=== PATIENT | female | born 1985 | race Caucasian/White ===

== ENCOUNTER 2016-04-09 14:44 | Inpatient (IN) | payer OTHER ==
[2016-04-09] VITALS (24 sets, daily range): BP systolic 88–134; BP diastolic 50–81
[~2016-04-09] VITALS: Ht 157.5 cm; Wt 75.0 kg
[~2016-04-09 14:44] MED LIST: ACET50TA PO
[2016-04-09] MEDS ORDERED: PENICILLIN G POTASSIUM IV 5 MU in D5W MINI-BAG PLUS 100 ML IV STA (15:01)
[2016-04-09 15:37] LABS: MEAN CORPUSCULAR HEMOGLOBIN 30.5 pg (27.0-33.0); MEAN CORPUSCULAR HGB CONC 34.2 g/dl (32.0-36.5); MEAN CORPUSCULAR VOLUME 89.1 fl (80.0-96.0); RED CELL DISTRIBUTION WIDTH 13.3 % (11.5-14.5); WHITE BLOOD COUNT 9.9 K/mm3 (4.0-10.0)
--- NOTE | 2016-04-09 17:38 | IPNPDOC ---
Obstetrical Progress Note Date of Service The patient was seen on 04/09/16 at 17:05. Progress Note HISTORY AND PHYSICAL: SUBJECTIVE: Patient is a 31-year-old female at 39 weeks and 6 days gestation with an EDC of 04/10/2016 based on a first trimester ultrasound. She initiated her care at [facility] in her first trimester. Her care has been uncomplicated. She presents to labor and delivery via ambulation for an elective induction of labor due to a history of 2 precipitous deliveries. She reports occasional contractions, active movement, denies leaking of fluid, denies vaginal bleeding. ALLERGIES: Sulfa drugs CURRENT MEDICATIONS: vitamins OBSTETRICAL HISTORY: 2006: Induced AB; 2008 induced AB; October 2004: of a living female at 40 weeks 3 days gestation weighing 7 lbs. 15 oz. complicated by precipitous delivery and meconium; November 2009 of a living male at 40 weeks 3 days gestation weighing 8 lbs. 2 oz. complicated by precipitous delivery ; September 2013: 5 week SAB OBSTETRICAL LABS: AB+, antibody screen negative, Pap within normal limits, rubella immune, RPR nonreactive, urine culture negative, hepatitis B surface antigen negative HIV negative, chlamydia negative, gonorrhea negative, genetic screening negative, 1 hour glucose tolerance test 110, second trimester hemoglobin and hematocrit 11.6 and 33.7, GBS positive. PAST MEDICAL HISTORY: No pertinent medical history SURGICAL HISTORY: D&C, tonsillectomy, cholecystectomy FAMILY HISTORY: Noncontributory SOCIAL HISTORY: Single with father of the baby, patient is a former smoker. Denies alcohol or drug use. Reports that she does not exercise. No history of STDs. OBJECTIVE: See vital signs below. heart rate 135 bpm with accelerations, no decelerations, moderate variability. Contractions irregular. SVE: 3/50/ posterior, soft, no bloody show, intact membranes. Neuro: A and O 3 Respiratory: Lungs clear bilaterally Abdomen: Gravid, mild contractions with palpation Cardiovascular: Regular rate and regular rhythm. Extremities: Generalized edema present in bilateral legs, ankles, and feet. No pitting edema. ASSESSMENT: IUP at 39 weeks and 6 days gestation, elective induction of labor, category 1 tracing, history of precipitous deliveries PLAN: Admit to labor and delivery. Out of bed as tolerated, regular diet, saline lock, penicillin G ordered for positive GBS, in labs ordered. We'll start induction once patient has had a few hours of penicillin in her system due to precipitous deliveries. Consider starting IV Pitocin. Collaboration of patient done with Dr. Krause. VS, I&O, 24H, Aleyda VS, I&O, 24H, Aleyda Vital Signs Date Time Temp Pulse Resp B/P Pulse Ox O2 Delivery O2 Flow Rate FiO2 04/09/16 14:56 97.8 88 18 130/81 Laboratory Tests 2 04/09/16 15:10: Serology Scanned Report Hepatitis B Testing 04/09/16 15:19: Laboratory Tests 04/09/16 15:19 Red Blood Count 3.76 L, Mean Corpuscular Volume 89.1, Mean Corpuscular Hemoglobin 30.5, Mean Corpuscular Hemoglobin Concent 34.2, Red Cell Distribution Width 13.3 ALLA ROSE CNM Apr 09, 2016 17:21
[2016-04-09] MEDS ORDERED: LR 1,000 ML IV SCH (18:55)
[2016-04-09] MEDS ORDERED: OXYTOCIN DRIP 30 UNITS in APPROPRIATE DILUENT 1 EA IV SCH (19:00)
[2016-04-09] MEDS ORDERED: LACTATED RINGER'S 1000 ML IV ONE (19:00)
[2016-04-09] MEDS ORDERED: FENTANYL 2MCG/ML ROPIVACAINE 0.2% NACL 250 ML CADD As Ordered ONE (19:35)
[2016-04-09] MEDS: PENICILLIN G POTASSIUM IV 2.5 MU in D5W 100 ML IV SCH ×2 (19:46→23:51)
[2016-04-09] MEDS ORDERED: LACTATED RINGER'S 1000 ML IV PRN (20:30)
[2016-04-09] MEDS ORDERED: ePHEDrine SULFATE 25 MG/5 ML(5MG/ML) SYRINGE IV PRN (20:30)
[2016-04-09] MEDS ORDERED: ONDANSETRON 4MG/2ML VIAL (J2405) IV PRN (20:30)
[2016-04-09] MEDS ORDERED: NALOXONE INJ 0.4 MG/1 ML VIAL (J2310) IV PRN (20:30)
[2016-04-09] MEDS ORDERED: EPIDURAL COMMENT XX SCH (20:30)
[2016-04-09] MEDS ORDERED: REFRIGERATOR IV KEYS XX PRN (20:30)
[2016-04-09] MEDS ORDERED: EPIDURAL/PCA KEYS XX PRN (20:30)
[2016-04-09] MEDS ORDERED: FENTANYL/ROPIVACAINE/NACL CADD 250 ML EPIDURAL SCH (20:30)
[2016-04-09] MEDS ORDERED: diphenhydrAMINE INJ 50MG/ML VIAL (J1200) IV PRN (20:30)
--- NOTE | 2016-04-09 21:17 | IPNPDOC ---
Obstetrical Progress Note Date of Service The patient was seen on 04/09/16 at 21:09. Progress Note PROGRESS NOTE SUBJECTIVE: Patient comfortable with epidural. Has no complaints. OBJECTIVE: Vital signs are now stable. Patient did experience a low blood pressure with systolic in the 80s diastolic in the 50 right after epidural resulting in a prolonged deceleration 6 minutes. Pressures stabilized. heart rate presently 120 bpm, moderate variability, positive accelerations , and no decelerations currently. Contractions are every 2-4 minutes. Pitocin is at 4 mU/min. ASSESSMENT: Intrauterine at 39 weeks 6 days gestation PLAN: Will perform a vaginal exam. Consider AROM. Continue with Pitocin induction. Continue with GBS prophylaxis. Anticipate spontaneous vaginal delivery. ALLA ROSE CNM Apr 09, 2016 21:17
--- NOTE | 2016-04-09 21:34 | IPNPDOC ---
Obstetrical Progress Note Date of Service The patient was seen on 04/09/16 at 21:29. Progress Note SUBJECTIVE: Patient comfortable with no complaints. OBJECTIVE: heart rate baseline 125, moderate variability, positive accelerations, no decelerations. Contractions every 2-4 minutes. Vital signs stable. SVE: 4/50/-2, mid position, soft. AROM with moderate amount of particulate meconium. Pitocin at 4 mU/m. ASSESSMENT: IUP at 39 weeks 6 days gestation, category 1 heart rate tracing PLAN: Nursing staff will notify Dr. Chen the garment manufacturer about particulate meconium. Continue with Pitocin induction. Anticipate cervical change and . ALLA ROSE CNM Apr 09, 2016 21:34
[2016-04-10] VITALS (10 sets, daily range): BP systolic 106–141; BP diastolic 53–77
--- NOTE | 2016-04-10 01:09 | DNPDOC ---
Delivery Note Delivery Note Alma Is a 31-year-old now G 6 P 3033 at 39 and 6 weeks' gestation who presented to labor and delivery for an elective induction of labor with a history of 2 precipitous deliveries. She obtained an epidural for pain management. Dr. Chen, the skoog operator, was notified when the patient was 7- 8 cm due to particulate meconium. She progressed to fully dilated at 0034 with the use of 22 mL of Pitocin. Patient pushed to a spontaneous vaginal delivery at 00 41 to a living male in the YRN position with restitution to LOT position. Nuchal cord 1 loose. Shoulders delivered with ease and the corpus immediately followed. Baby placed on maternal abdomen crying and active. Cord clamped 2 and cut by father of the baby. Dr. Chen did not make it to delivery. Spontaneous delivery of intact placenta with a three-vessel cord by Simpson mechanism at 00 45. Uterine hemostasis achieved by rapid infusion of IV Pitocin and uterine fundal massage. Perineum and vagina inspected and found to be intact. EBL 150. Infant's 9/10. Weight 7 lbs. 9 oz/3440 g. Barnhart's name is Golden and mom will be bottle feeding. ALLA ROSE CNM Apr 10, 2016 01:09
[2016-04-10] MEDS ORDERED: RHOGAM 300 MCG (1500 IU) INJ (J2790) IM SCH (06:30)
[2016-04-10] MEDS ORDERED: METHYLERGONOVINE MALEATE 0.2 MG TAB PO PRN (06:30)
[2016-04-10] MEDS ORDERED: MEASLES,MUMPS,RUBELLA VACCINE INJ (MMR-II) (90707) SC SCH (06:30)
[2016-04-10] MEDS ORDERED: ANUSOL HC CREAM 30GM TOP PRN (06:30)
[2016-04-10] MEDS ORDERED: DOCUSATE SODIUM 100 MG CAP PO PRN (06:30)
[2016-04-10] MEDS ORDERED: DIBUCAINE 1% OINTMENT 30GM TOP PRN (06:30)
[2016-04-10] MEDS: IBUPROFEN 800 MG TAB PO PRN ×2 (06:32→17:45)
[2016-04-10] MEDS: PRENATAL VITAMIN TAB PO SCH (09:30)
[2016-04-10] MEDS: ACETAMINOPHEN 500 MG TAB PO PRN ×2 (11:40→19:40)
[2016-04-11 05:56] VITALS: BP 129/71
[2016-04-11] MEDS: ACETAMINOPHEN 500 MG TAB PO PRN (07:31)
[2016-04-11] MEDS: PRENATAL VITAMIN TAB PO SCH (07:31)
[2016-04-11] MEDS ORDERED: TYLE500T78 PO (10:04)
[2016-04-11] MEDS ORDERED: MOTR200T44 PO (10:04)
[2016-04-11] MEDS ORDERED: STUACAP PO (10:04)
== END 2016-04-11 12:35 | disposition home or self-care (01) | DRG 560 ==
LOC: M LDI 14:44 → M OBS 04-10 02:44
PROVIDERS: ADMIT Obstetrics & Gynecology; ATTEND Obstetrics & Gynecology
PROC: 10E0XZZ Delivery of Products of Conception, External Approach (ICD-10-PCS; principal; 2016-04-10)
PROC: 3E033VJ Introduction of Other Hormone into Peripheral Vein, Percutaneous Approach (ICD-10-PCS; 2016-04-10)
DX: O77.0 Labor and delivery complicated by meconium in amniotic fluid (principal); O69.82X0 Labor and delivery complicated by other cord entanglement, without compression, not applicable or unspecified; Z37.0 Single live birth; Z3A.39 39 weeks gestation of pregnancy

== ENCOUNTER → 2017-02-24 | Outpatient (REF) | payer OTHER ==
[~2017-02-24] MED LIST changes: +MOTR200T44 PO; +STUACAP PO; +TYLE500T78 PO
[2017-02-24 13:56] LABS: MEAN CORPUSCULAR HEMOGLOBIN 30.2 pg (27.0-33.0); MEAN CORPUSCULAR HGB CONC 34.5 g/dl (32.0-36.5); MEAN CORPUSCULAR VOLUME 87.7 fl (80.0-96.0); PLATELET COUNT, AUTOMATED 276 10^3/uL (150-450); RED CELL DISTRIBUTION WIDTH 12.6 % (11.5-14.5); WHITE BLOOD COUNT 6.5 10^3/uL (4.0-10.0)
[2017-02-24 14:43] LABS: HCG, SERUM QUANTITATIVE 1212 MIU/ML
== END ==
LOC: M LAB REF 13:40
PROVIDERS: ATTEND Obstetrics & Gynecology
DX: O36.80X0 Pregnancy with inconclusive fetal viability, not applicable or unspecified (principal)

== ENCOUNTER → 2017-03-03 | Outpatient (REF) | payer OTHER | LOC: M LAB REF 13:08 | PROVIDERS: ATTEND Advanced Practice Midwife | DX: O36.80X0 Pregnancy with inconclusive fetal viability, not applicable or unspecified (principal) ==

== ENCOUNTER → 2017-03-24 | Outpatient (REF) | payer OTHER ==
[2017-03-24 16:10] LABS: CHLAMYDIA DNA AMPLIFICATION NEGATIVE (NEGATIVE); GC DNA AMPLIFICATION NEGATIVE (NEGATIVE)
== END ==
LOC: M LAB REF 13:13
DX: Z36.89 Encounter for other specified antenatal screening (principal)
CPT/HCPCS: 87591

== ENCOUNTER → 2017-08-16 | Outpatient (CLI) | payer OTHER ==
[2017-08-16 10:39] LABS: HEMATOCRIT 31.7 % (36.0-47.0); HEMOGLOBIN 10.7 g/dl (12.0-15.5); MEAN CORPUSCULAR HEMOGLOBIN 31.2 pg (27.0-33.0); MEAN CORPUSCULAR HGB CONC 33.8 g/dl (32.0-36.5); MEAN CORPUSCULAR VOLUME 92.4 fl (80.0-96.0); PLATELET COUNT, AUTOMATED 246 10^3/uL (150-450); RED BLOOD COUNT 3.43 10^6/uL (4.00-5.40); RED CELL DISTRIBUTION WIDTH 13.2 % (11.5-14.5); WHITE BLOOD COUNT 12.5 10^3/uL (4.0-10.0)
[2017-08-16 11:06] LABS: GLUCOSE CHALLENGE TEST 1 HOUR 91 MG/DL (LESS THAN 140)
== END ==
LOC: M LAB 09:05
DX: Z36.89 Encounter for other specified antenatal screening (principal); Z3A.00 Weeks of gestation of pregnancy not specified
CPT/HCPCS: 82950

== ENCOUNTER → 2017-10-04 | Outpatient (REF) | payer OTHER | LOC: M LAB REF 13:25 | DX: Z34.83 Encounter for supervision of other normal pregnancy, third trimester (principal) ==

== ENCOUNTER → 2018-12-08 | Outpatient (REF) | payer OTHER, MEDICAID ==
[~2018-12-08] MED LIST changes: -ACET50TA PO; +MAPA500T17 PO
== END ==
LOC: M SFHCLERA 20:10
PROVIDERS: ATTEND Physician Assistant
DX: J02.9 Acute pharyngitis, unspecified (principal)

== ENCOUNTER → 2019-07-20 | Outpatient (CLI) | payer OTHER ==
--- NOTE | 2019-07-20 17:12 | REP ---
PELVIC SONOGRAPHY: HISTORY: Evaluate IUD placement. FINDINGS: Transabdominal and transvaginal scanning are performed. Uterine dimensions are mildly enlarged measured at 10.9 x 6.0 x 7.0 cm. Endometrial echo is 1.0 cm thick. The IUD is seen in good position in the endometrium. No free fluid or focal uterine mass is seen. Visualized bladder boothe are smooth. Normal ovaries seen bilaterally. Right ovary measures 3.2 x 2.2 x 2.9 cm. Left ovarian dimensions are 3.3 x 1.6 x 3.1 cm. IMPRESSION: Mildly enlarged uterus. IUD in good position. Otherwise unremarkable pelvic sonography. Electronically Signed by Mir Wallace MD 07/23/2019 08:44 A
== END ==
LOC: M RAD 15:33
PROVIDERS: ATTEND Obstetrics & Gynecology
DX: Z30.431 Encounter for routine checking of intrauterine contraceptive device (principal)

== ENCOUNTER → 2021-01-21 | Outpatient (REF) | payer OTHER ==
[2021-01-21 18:42] LABS: FOLLICLE STIMULATING HORMONE 5.2 mIU/mL; LUTEINIZING HORMONE 5.6 mIU/mL
== END ==
LOC: M LAB REF 17:09
PROVIDERS: ATTEND Obstetrics & Gynecology
DX: N92.1 Excessive and frequent menstruation with irregular cycle (principal)

== ENCOUNTER → 2021-01-27 | Outpatient (CLI) | payer OTHER ==
[2021-01-27 10:20] LABS: BASO % 0.5 % (0.0-1.0); EOS # 0.3 10^3/uL (0.0-0.5); EOS % 4.5 % (0.0-3.0); HEMATOCRIT 42.8 % (36.0-47.0); HEMOGLOBIN 14.1 g/dl (12.0-15.5); LYMPH # 2.1 10^3/uL (1.5-5.0); LYMPH % 34.4 % (24.0-44.0); MEAN CORPUSCULAR HEMOGLOBIN 30.7 pg (27.0-33.0); MEAN CORPUSCULAR HGB CONC 32.9 g/dl (32.0-36.5); MONO # 0.4 10^3/uL (0.0-0.8); MONO % 7.1 % (2.0-8.0); NEUTROPHILS # 3.2 10^3/uL (1.5-8.5); NEUTROPHILS % 53.3 % (36.0-66.0); PLATELET COUNT, AUTOMATED 244 10^3/uL (150-450)
[2021-01-27 10:31] LABS: APPEARANCE, URINE HAZY (CLEAR); BACTERIA, URINE AUTO NEGATIVE (NEGATIVE); BILIRUBIN, URINE AUTO NEGATIVE (NEGATIVE); BLOOD, URINE BLOOD 2+ (NEGATIVE); COLOR, URINE YELLOW (YELLOW); GLUCOSE, URINE (UA) AUTO NEGATIVE (NEGATIVE); KETONE, URINE AUTO NEGATIVE (NEGATIVE); LEUKOCYTE ESTERASE, URINE AUTO NEGATIVE (NEGATIVE); MUCUS, URINE LARGE (NEGATIVE); NITRITE, URINE AUTO NEGATIVE (NEGATIVE); PROTEIN, URINE AUTO 1+ mg/dL (NEGATIVE); RBC, URINE AUTO 3 /HPF (0-3); SPECIFIC GRAVITY URINE AUTO 1.023 (1.002-1.035); SQUAMOUS EPITHELIAL CELL UR AU 7 /HPF (0-6); WBC, URINE AUTO 2 /HPF (0-3)
[2021-01-27 10:33] LABS: INR 0.98; PROTHROMBIN TIME 13.4 SECONDS (12.7-14.5)
[2021-01-27 10:34] LABS: PARTIAL THROMBOPLASTIN TIME 28.9 SECONDS (25.9-37.0)
--- NOTE | 2021-01-27 10:41 | ECGEPIP ---
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
[2021-01-27 11:57] LABS: BLOOD UREA NITROGEN 12 MG/DL (7-18); CARBON DIOXIDE LEVEL 27 MEQ/L (21-32); CHLORIDE LEVEL 109 MEQ/L (98-107); CREATININE FOR GFR 0.72 MG/DL (0.55-1.30); GLOMERULAR FILTRATION RATE > 60.0 (>60); GLUCOSE, FASTING 89 MG/DL (70-100); POTASSIUM SERUM 3.8 MEQ/L (3.5-5.1); SODIUM LEVEL 140 MEQ/L (136-145)
[2021-01-27 11:58] LABS: ALBUMIN 3.9 GM/DL (3.2-5.2); ALT/SGPT 54 U/L (12-78); BILIRUBIN,TOTAL 0.5 MG/DL (0.2-1.0); CALCIUM LEVEL 8.9 MG/DL (8.5-10.1); HCG, SERUM QUANTITATIVE < 1.0 MIU/ML; TOTAL PROTEIN 7.1 GM/DL (6.4-8.2)
[2021-01-27 12:40] LABS: HIV 1&2 SCREEN CENTAUR NEGATIVE (NEGATIVE)
== END ==
LOC: M EKG 09:07
PROVIDERS: ATTEND Surgery Plastic and Reconstructive Surgery
DX: Z01.812 Encounter for preprocedural laboratory examination (principal)
CPT/HCPCS: 36415; 80053; 80307; 81001; 84702; 85025; 85610; 85730; 87389; 93005; G0480

== ENCOUNTER → 2021-09-20 | Outpatient (CLI) | payer OTHER | LOC: M LABSMTC 10:34 | PROVIDERS: ATTEND Anesthesiology | DX: Z01.812 Encounter for preprocedural laboratory examination (principal); Z20.822 Contact with and (suspected) exposure to COVID-19 ==

== ENCOUNTER 2021-09-23 09:33 | Day surgery (SDC) | payer OTHER ==
[~2021-09-23] VITALS: Ht 157.5 cm; Wt 67.1 kg
[~2021-09-23 09:33] MED LIST changes: +ceFAZolin SOD 2 GM in IV 1 EA IV ONE
[2021-09-23] MEDS ORDERED: MIDAZOLAM INJ 2MG/2ML VIAL (J2250 PER 1MG) As Ordered ONE (09:58)
[2021-09-23] MEDS ORDERED: LIDOCAINE 2% INJ 100 MG/5 ML SYRINGE As Ordered ONE (09:58)
[2021-09-23] MEDS ORDERED: propofoL 200 MG/20 ML VIAL As Ordered ONE (09:58)
[2021-09-23] MEDS ORDERED: dexameTHASONE 4 MG/ML 1ML VIAL (J1100 PER 1MG) As Ordered ONE (09:58)
[2021-09-23] MEDS ORDERED: fentaNYL 100 MCG/2 ML INJECTION As Ordered ONE (09:58)
[2021-09-23] MEDS ORDERED: ONDANSETRON 4MG 2ML VIAL As Ordered ONE (09:58)
[2021-09-23 10:23] LABS: HEMOGLOBIN 13.9 g/dl (12.0-15.5); MEAN CORPUSCULAR HEMOGLOBIN 30.9 pg (27.0-33.0); MEAN CORPUSCULAR HGB CONC 34.8 g/dl (32.0-36.5); MEAN CORPUSCULAR VOLUME 88.9 fl (80.0-96.0); PLATELET COUNT, AUTOMATED 215 10^3/uL (150-450); WHITE BLOOD COUNT 6.6 10^3/uL (4.0-10.0)
[2021-09-23] MEDS ORDERED: LR 1,000 ML IV SCH ×2 (10:25→14:30)
[2021-09-23] MEDS ORDERED: SUGAMMADEX SODIUM 500 MG/5 ML VIAL (BRIDION) As Ordered ONE (13:14)
[2021-09-23] MEDS ORDERED: ROCURONIUM BROMIDE 50 MG/5 ML VIAL As Ordered ONE (13:14)
[2021-09-23] MEDS ORDERED: ACETAMINOPHEN 1000MG 100ML IV BTL (OFIRMEV) (J0131 PER 10MG) As Ordered ONE (13:35)
[2021-09-23] MEDS ORDERED: KETOROLAC 60MG 2ML VIAL As Ordered ONE (14:00)
[2021-09-23] MEDS: BUPIVACAINE/EPIN 0.25% 30 ML VIAL As Ordered ONE ×2 (14:28→14:29)
[2021-09-23] MEDS ORDERED: ONDANSETRON 4MG 2ML VIAL IV PRN (14:30)
[2021-09-23] MEDS ORDERED: oxyCODONE 5MG TAB PO PRN (14:30)
[2021-09-23] MEDS ORDERED: MORPHINE 2 MG/ML 1ML VIAL IV PRN (14:30)
[2021-09-23] MEDS ORDERED: fentaNYL 100 MCG/2 ML INJECTION IV PRN (14:30)
[2021-09-23] MEDS ORDERED: METOCLOPRAMIDE INJ 10MG/2ML VIAL (J2765 PER 1) IV STA (15:00)
[2021-09-23] MEDS ORDERED: PERCOCET 5MG/325MG TAB PO PRN (15:40)
[2021-09-23 16:15] VITALS: BP 114/65
[2021-09-23] MEDS ORDERED: IBUPROFEN 800 MG TAB PO SCH (20:00)
== END 2021-09-23 16:23 | disposition home or self-care (01) ==
LOC: M SDC 09:33
PROVIDERS: ATTEND Obstetrics & Gynecology
DX: N93.9 Abnormal uterine and vaginal bleeding, unspecified (principal); Z30.2 Encounter for sterilization; N84.0 Polyp of corpus uteri
CPT/HCPCS: 36415; 58301; 58563; 58661; 81025; 85027; 88302; 88305; J0131; J0690; J1100; J1885; J2250; J2405; J2765; J3010

== ENCOUNTER → 2022-07-08 | Outpatient (REF) | payer OTHER ==
[~2022-07-08] MED LIST changes: -ceFAZolin SOD 2 GM in IV 1 EA IV ONE
[2022-07-08 13:29] LABS: APPEARANCE, URINE HAZY (CLEAR); BACTERIA, URINE AUTO NEGATIVE (NEGATIVE); BILIRUBIN, URINE AUTO NEGATIVE (NEGATIVE); BLOOD, URINE BLOOD 2+ (NEGATIVE); COLOR, URINE YELLOW (YELLOW); GLUCOSE, URINE (UA) AUTO NEGATIVE (NEGATIVE); KETONE, URINE AUTO NEGATIVE (NEGATIVE); LEUKOCYTE ESTERASE, URINE AUTO TRACE (NEGATIVE); MUCUS, URINE SMALL (NEGATIVE); NITRITE, URINE AUTO NEGATIVE (NEGATIVE); PROTEIN, URINE AUTO NEGATIVE (NEGATIVE); RBC, URINE AUTO 25 /HPF (0-3); SPECIFIC GRAVITY URINE AUTO 1.021 (1.002-1.035); SQUAMOUS EPITHELIAL CELL UR AU 1 /HPF (0-6); UROBILINOGEN, URINE AUTO 0.2 mg/dL (0.0-2.0); WBC, URINE AUTO 11 /HPF (0-3)
== END ==
LOC: M LAB REF 12:19
PROVIDERS: ATTEND Physician Assistant Medical
DX: N39.0 Urinary tract infection, site not specified (principal)

== ENCOUNTER → 2022-07-08 | Outpatient (CLI) | payer OTHER | LOC: M WHC 13:09 | PROVIDERS: ATTEND Obstetrics & Gynecology | DX: R10.2 Pelvic and perineal pain (principal); D25.9 Leiomyoma of uterus, unspecified; N83.8 Other noninflammatory disorders of ovary, fallopian tube and broad ligament; Q51.28 Other and unspecified doubling of uterus ==

== ENCOUNTER → 2022-11-02 | Outpatient (CLI) | payer OTHER ==
[2022-11-02 10:06] LABS: BASO % 0.4 % (0.0-1.0); EOS # 0.2 10^3/uL (0.0-0.5); EOS % 3.4 % (0.0-3.0); HEMATOCRIT 41.2 % (36.0-47.0); HEMOGLOBIN 13.9 g/dl (12.0-15.5); LYMPH # 1.9 10^3/uL (1.5-5.0); MEAN CORPUSCULAR HEMOGLOBIN 30.6 pg (27.0-33.0); MEAN CORPUSCULAR HGB CONC 33.7 g/dl (32.0-36.5); MEAN CORPUSCULAR VOLUME 90.7 fl (80.0-96.0); MONO # 0.5 10^3/uL (0.0-0.8); MONO % 9.6 % (2.0-8.0); NEUTROPHILS # 2.6 10^3/uL (1.5-8.5); NEUTROPHILS % 50.4 % (36.0-66.0); PLATELET COUNT, AUTOMATED 238 10^3/uL (150-450); RED BLOOD COUNT 4.54 10^6/uL (4.00-5.40); WHITE BLOOD COUNT 5.2 10^3/uL (4.0-10.0)
== END ==
LOC: M LAB 09:18
DX: Z01.812 Encounter for preprocedural laboratory examination (principal)

== ENCOUNTER → 2022-11-09 | Outpatient (CLI) | payer OTHER ==
[2022-11-09 15:01] LABS: APPEARANCE, URINE CLEAR (CLEAR); BACTERIA, URINE AUTO NEGATIVE (NEGATIVE); BILIRUBIN, URINE AUTO NEGATIVE (NEGATIVE); BLOOD, URINE BLOOD NEGATIVE (NEGATIVE); COLOR, URINE YELLOW (YELLOW); GLUCOSE, URINE (UA) AUTO NEGATIVE (NEGATIVE); KETONE, URINE AUTO TRACE mg/dL (NEGATIVE); LEUKOCYTE ESTERASE, URINE AUTO NEGATIVE (NEGATIVE); MUCUS, URINE SMALL (NEGATIVE); NITRITE, URINE AUTO NEGATIVE (NEGATIVE); PROTEIN, URINE AUTO NEGATIVE (NEGATIVE); RBC, URINE AUTO 1 /HPF (0-3); SPECIFIC GRAVITY URINE AUTO 1.014 (1.002-1.035); SQUAMOUS EPITHELIAL CELL UR AU 0 /HPF (0-6); UROBILINOGEN, URINE AUTO 0.2 mg/dL (0.0-2.0); WBC, URINE AUTO 0 /HPF (0-3)
[2022-11-09 15:32] LABS: ALBUMIN 4.4 G/DL (3.2-5.2); ALKALINE PHOSPHATASE 42 U/L (46-116); ALT/SGPT 39 U/L (7.0-40); AST/SGOT 15 U/L (<34); BILIRUBIN,TOTAL 0.7 MG/DL (0.3-1.2); BLOOD UREA NITROGEN 10 MG/DL (9-23); CALCIUM LEVEL 9.3 MG/DL (8.5-10.1); CARBON DIOXIDE LEVEL 28 MMOL/L (20-31); CHLORIDE LEVEL 104 MMOL/L (98-107); CREATININE FOR GFR 0.62 MG/DL (0.55-1.30); GLOMERULAR FILTRATION RATE > 60.0 (>60); GLUCOSE, FASTING 84 MG/DL (60-100); POTASSIUM SERUM 3.9 MMOL/L (3.5-5.1); SODIUM LEVEL 140 MMOL/L (136-145); TOTAL PROTEIN 7.4 G/DL (5.7-8.2)
== END ==
LOC: M LAB 14:15
DX: Z01.812 Encounter for preprocedural laboratory examination (principal)